=== PATIENT | male | born 1990 | race Caucasian/White ===

== ENCOUNTER 2018-05-17 12:32 | Emergency (ER) | payer SELFPAY ==
[2018-05-17 12:33] VITALS: BP 158/80; PULSE 120; RESP 18; TEMP 37.4; O2SAT 98; BMI 37.7
[2018-05-17 12:45] VITALS: TEMP 37.9
[2018-05-17 13:01] LABS: Bacteria 0 SEEN /hpf (None Seen); Mucous, Urine 0 SEEN /hpf (<or=2+); Red Blood Cells-Urine 0 SEEN /hpf (0-5); Squamous Epithelial Cells - UA 0 SEEN /hpf (0-5); White Blood Cells 0 SEEN /hpf (0-5)
[2018-05-17 13:02] LABS: Color, Urine Yellow (Yellow); Glucose, Dipstick Normal (Normal); Ketone-Dipstick 15 mg/dl (Negative); Leukocyte Esterase-Dipstick Negative /ul (Negative); Nitrite-Dipstick Negative (Negative); Occult Blood-Urine 10 /ul (Negative); Protein-Dipstick 15 mg/dl (Negative); Specific Gravity, Urine 1.015 (1.002-1.030); Urine Bilirubin Dipstick Negative (Negative); Urine Clarity Clear (Clear); Urine Urobilinogen 1 mg/dl (Normal)
--- NOTE | 2018-05-17 13:03 | RAD_ITS ---
STUDY: X-RAY CHEST REASON FOR EXAM: Male, 27 years old. Back pain. Cold like symptoms. TECHNIQUE: PA and lateral views of the chest. COMPARISON: None. FINDINGS: The lungs are clear and expanded. There is no demonstrated pleural abnormality. Normal size heart. Normal mediastinum and elvia. Normal visualized pulmonary arteries. Normal visualized aortic arch and descending thoracic aorta. Normal visualized thoracic spine. Normal visualized ribs, clavicles, and shoulders. There is no demonstrated abnormality of the visualized soft tissue structures of the upper abdomen. RAD/Chest PA and Lateral IMPRESSION: Normal x-ray examination of the chest. Electronically Signed: John Vidal MD at 13:19 EDT Tel [phone], Service support ,
--- NOTE | 2018-05-17 13:11 | ED.VISSUMM ---
- ER Visit Summary Date of Service: 05/17/18 Chief Complaint: I am sick History of Present Illness: The patient is a 27 M who states that yesterday he began to feel ill. He notes subjective fever chills and sweats. Runny nose sore throat cough with sputum production nausea vomiting diarrhea generalized back pain kidney pain myalgias and generalized weakness. He states that his kids were recently sick as well. He states he has never been this sick. He denies any rash. Physical Examination: Temperature 100.2 orally taken by this physician heart rate 120 in triage 105 on my examination respirations are 18 unlabored. Pulse ox is 96%. Gen: Well-nourished well-developed Head: Normocephalic atraumatic Eyes: Perrl EOMI ENT: TMs clear no rhinorrhea moist mucous membranes Neck: Supple no lymphadenopathy no JVD nontender CVS: Regular rate rhythm no murmurs normal S1-S2 Respiratory: No distress clear to auscultation bilaterally chest nontender Abdomen: Soft nontender nondistended normal bowel sounds no masses Back: Nontender Extremity: Nontender no edema Skin: Normal color no rash Neuro: alert orientated ?3 CN II-XII intact normal strength sensation reflexes gait cerebellar Psych: Normal affect normal mood Test Results: Chest x-ray does not reveal an infiltrate. Urinalysis does not demonstrate infection Emergency Department Course and Treatment: Patient received ibuprofen. Will be treated with supportive care at home with ibuprofen or Tylenol and Zofran. Encourage fluid hydration. Return if worsening or concerns Impression: 1. Viral syndrome This note was generated with [employer] dictation software. It may contain incorrect words, spelling, and punctuation that were not noted in review of the chart prior to signing ED Disposition - Plan for ED Patient: Disposition: Home or Assisted Living Chief Complaint: General Illness Instructions: ED Viral Syndrome Prescriptions: Ondansetron [Zofran Odt] 4 mg PO Q6H PRN PRN #20 tab PRN Reason: Nausea Ibuprofen [Motrin] 800 mg PO TID PRN PRN #20 tab PRN Reason: Fever Referrals: Dirk Vazquez [Primary Care Provider] - 1 Week if not improving
[2018-05-17] MEDS: Ibuprofen 400 MG Tablet 800 MG PO (13:15)
[2018-05-17 14:10] VITALS: BP 118/76; PULSE 66; RESP 15; O2SAT 98
== END 2018-05-17 14:12 | disposition home or self-care (01) ==
PROVIDERS: Emergency Provider Emergency Medicine; Family Provider Family Medicine; PCP Family Medicine
DX: B34.9 Viral infection, unspecified (principal); Z72.0 Tobacco use
CPT/HCPCS: 71046; 81001; 99283

== ENCOUNTER 2025-04-26 15:53 | Emergency (ER) | payer SELFPAY ==
[2025-04-26 15:54] VITALS: BP 180/126; PULSE 108; RESP 18; TEMP 36.8; O2SAT 99; BMI 36.2
[2025-04-26] MEDS: HYDROcodone Bitartrate/Apap 5/325 Tablet PO (16:20)
--- NOTE | 2025-04-26 16:25 | ED.VIS.DENTA ---
HPI History of Present Illness Chief Complaint: Dental Informant: patient Narrative Narrative: Left lower dental pain past 3 weeks. Hot and cold sensitivities. [facility] 2 days ago. Increasing pain since then. No fevers. No trouble swallowing. Has a dental appointment in May. This is soon as he can get. No allergies to antibiotics. Pain worse than [facility] was at [facility]. No history gastric ulcers or kidney injury. Reports recent upper and lower endoscopies that were negative. Prior similar symptoms: Yes PFSH PFSH Medical History no medical history Home Medications ?Medication ?Instructions ?Recorded ?Last Taken ?Type ibuprofen 800 mg tablet 800 mg PO TID PRN PRN Fever #20 05/17/18 Unknown Rx tabs ondansetron 4 mg disintegrating 4 mg PO Q6H PRN PRN Nausea #20 tabs 05/17/18 Unknown Rx tablet hydrocodone-acetaminophen 5-325mg 1 tab PO Q6H PRN PRN Pain 3 days 04/26/25 Unknown Rx 5mg-325mg #12 TABLETS ibuprofen 600 mg tablet 600 mg PO Q6H PRN PRN pain #20 04/26/25 Unknown Rx TABLETS penicillin V potassium 500 mg 500 mg PO 4X/DAY #40 tabs 04/26/25 Unknown Rx tablet Allergy/AdvReac Type Severity Reaction Status Date / Time No Known Allergies Allergy Verified 04/26/25 15:57 Family History no significant family his Surgical History no surgical history Social History Smoking Status: Current every day smoker tobacco type: cigarettes ROS ROS ED Constitutional Constitutional ED: Denies fever(s) ENT ENT ED: Reports other Details: Left lower dental pain Cardiovascular Cardiovascular: Denies chest pain Respiratory/Chest Respiratory/Chest: Denies cough Gastrointestinal Gastrointestinal: Denies diarrhea or vomiting Musculoskeletal Musculoskeletal: Denies none Integumentary Denies rash or wounds Neurologic Neurologic: Denies weakness EXAM Physical Exam Const Vital Signs: 04/26/25 15:54 Temperature 98.3 F Temperature Source Oral Pulse Rate 108 H Respiratory Rate 18 Blood Pressure 180/126 H Blood Pressure Mean 144 Pulse Ox 99 Oxygen Delivery Method Room Air Positive well nourished and well developed General Appearance ED: well developed and NAD HEENT Reports moist mucous membranes HEENT Narrative: Tender to percussion #19,Some decay at the base of the tooth. previously extracted 20. No submental edema, no gum fluctuance. No trismus. normocephalic and atraumatic Eyes General Eye ED: Yes normal appearance of both eyes Neck full ROM Chest Wall Chest: Negative for tenderness Resp normal respiratory effort and normal air movement Effort and Inspection: symmetric chest movement; Negative for respiratory distress Cardio regular rate, regular rhythm and no murmurs Peripheral Pulses: pulses 2+ throughout GI normal to inspection, nondistended, normoactive bowel sounds and non-tender Palpation: Negative for guarding or rebound tenderness present Extremity normal to inspection General Extremety ED: Negative for edema or tenderness General Extremity: Negative for edema Neuro oriented x3 and no sensory deficits noted Sensorium / Orientation: awake and alert Skin no rashes or lesions noted and no wounds MDM MDM MDM Narrative Medical decision making narrative: Interventions / MDM: Differential diagnosis: Dental caries, dentalgia Diagnosis considered but do not suspect: No clinical David angina. My EKG interpretation: N/A Imaging independently reviewed and interpreted by myself: N/A External documents reviewed: N/A Test considered but not ordered:N/A ED course: Nontoxic afebrile no supplemental edema for concerns for David's. Recurrent pain after being off the antibiotics. Will start penicillin ibuprofen short course of [place]. Dental list given to patient for possible outpatient earlier follow-up with different dental clinic. All questions were answered. Re-evaluation: stable Disposition discussed with patient/family/significant other: Patient Case discussed with consulting clinician: N/A This note was generated with [employer] dictation software. It may contain incorrect words, spelling, and punctuation that were not noted in checking the note before signing. Discharge Plan Triage Chief Complaint: Dental ED Provider: Serg Mayo Dx/Rx/DC Orders Clinical Impression: Dentalgia, Dental caries Instructions: ED Dental Pain Prescriptions: New hydrocodone-acetaminophen 5-325 mg tablet 1 tab PO Q6H PRN PRN (Reason: Pain) 3 Days Qty: 12 0RF ibuprofen 600 mg tablet 600 mg PO Q6H PRN PRN (Reason: pain) Qty: 20 0RF penicillin V potassium 500 mg tablet 500 mg PO 4X/DAY Qty: 40 0RF No Action ibuprofen 800 MG tablet 800 mg PO TID PRN PRN (Reason: Fever) Qty: 20 0RF ondansetron 4 MG tablet 4 mg PO Q6H PRN PRN (Reason: Nausea) Qty: 20 0RF Primary Care Provider: Care Physician,No Primary Referrals: Care Physician,No Primary [Primary Care Provider] - Activity Restrictions/Additional Instructions: Dental pain tooth #19. No abscess noted. Take antibiotic as prescribed. Pain meds as needed. Follow-up with dentist for definitive treatment. Print Language: Upper Sorbian Disposition Disposition: Home, Self Care Discharge Date/Time: 04/26/25 16:38
== END 2025-04-26 16:38 | disposition home or self-care (01) ==
PROVIDERS: Emergency Provider Emergency Medicine; Visit Provider Emergency Medicine
DX: K02.9 Dental caries, unspecified (principal); K08.89 Other specified disorders of teeth and supporting structures; F17.210 Nicotine dependence, cigarettes, uncomplicated
CPT/HCPCS: 99283